=== PATIENT | female | born 1950 | race Caucasian/White ===

== ENCOUNTER 2019-05-17 16:03 | Inpatient (IN) | payer MEDICARE, OTHER ==
[2019-05-17] MEDS ORDERED: IPRATROPIUM-ALBUTEROL 3 ML NEB INHALATION STA (16:34)
[2019-05-17] MEDS ORDERED: methylPREDNISolone SOD SUCCI 125 MG/2 ML VIAL IV STA (16:34)
[2019-05-17] MEDS ORDERED: SODIUM CHLORIDE 0.9% 1,000 ML IV STA ×2 (16:34)
--- NOTE | 2019-05-17 16:35 | ED ---
SOB HPI - General Chief Complaint: Shortness of Breath Stated Complaint: SOB Time Seen by Provider: 05/17/19 16:11 Source: patient, family, RN notes reviewed, old records reviewed Mode of arrival: ambulatory Limitations: no limitations - History of Present Illness Initial Comments: This is a 68-year-old female date ER for evaluation of severe shortness of breath. Patient was sent in for evaluation of breathing. Patient is concern for kidney function. The patient only with taking a deep breath unable to and without significant decrease her pulse ox at home as well as increasing shortness of breath. Patient denying any pain. No fevers increased cough and increased congestion. Patient was very scared with any activity that she is going to lose her breath and pass out. No chest pain currently MD Complaint: shortness of breath, cough -: days(s) Severity: severe Severity scale (1-10): 9 Consistency: constant Improves With: nothing Worsens With: nothing Known History Of: COPD Context: recent URI Associated Symptoms: cough, sputum production Treatments Prior to Arrival: none - Related Data Home Medications Medication Instructions Recorded Confirmed Albuterol Inhaler [Ventolin Hfa 2 puff INHALATION RT-Q4H PRN 05/17/19 05/17/19 Inhaler] Ascorbic Acid [Vitamin C] 500 mg PO DAILY 05/17/19 05/17/19 Aspirin EC [Ecotrin Low Dose] 81 mg PO DAILY 05/17/19 05/17/19 Atorvastatin [Lipitor] 10 mg PO DAILY 05/17/19 05/17/19 Budesonide-Formot 160-4.5 Mcg 2 puff INHALATION RT-BID 05/17/19 05/17/19 [Symbicort 160-4.5 Mcg Inhaler] Cholecalciferol (Vitamin D3) 2,000 unit PO DAILY 05/17/19 05/17/19 [Vitamin D3] Citalopram Hydrobromide [CeleXA] 40 mg PO DAILY 05/17/19 05/17/19 Clopidogrel [Plavix] 75 mg PO DAILY 05/17/19 05/17/19 Cyanocobalamin (Vitamin B-12) 1,000 mcg PO DAILY 05/17/19 05/17/19 [Vitamin B-12] Fluticasone/Umeclidin/Vilanter 1 puff INHALATION RT-DAILY 05/17/19 05/17/19 [Trelegy Ellipta 100-62.5-25] Hydrochlorothiazide [Hydrodiuril] 25 mg PO DAILY 05/17/19 05/17/19 Metoprolol Succinate [Toprol XL] 50 mg PO DAILY 05/17/19 05/17/19 Omeprazole 20 mg PO DAILY 05/17/19 05/17/19 Potassium Chloride ER [K-Dur 10] 10 meq PO BID 05/17/19 05/17/19 Zolpidem [Ambien] 5 mg PO HS PRN 05/17/19 05/17/19 amLODIPine [Norvasc] 10 mg PO DAILY 05/17/19 05/17/19 predniSONE 60 mg PO DAILY PRN 05/17/19 05/17/19 traMADol HCL [Ultram] 50 mg PO Q6H PRN 05/17/19 05/17/19 Allergies Allergy/AdvReac Type Severity Reaction Status Date / Time codeine Allergy Nausea & Verified 05/17/19 18:05 Vomiting Review of Systems ROS Statement: Those systems with pertinent positive or pertinent negative responses have been documented in the HPI. ROS Other: All systems not noted in ROS Statement are negative. Past Medical History Past Medical History: COPD, Hypertension, Pneumonia, Renal Disease Additional Past Medical History / Comment(s): emphysema History of Any Multi-Drug Resistant Organisms: None Reported Past Surgical History: Adenoidectomy, Cholecystectomy, Orthopedic Surgery, Tonsillectomy Past Psychological History: No Psychological Hx Reported Smoking Status: Former smoker Past Alcohol Use History: None Reported Past Drug Use History: None Reported General Exam Limitations: no limitations General appearance: alert, anxious, cachectic Head exam: Present: atraumatic, normocephalic, normal inspection Eye exam: Present: normal appearance, PERRL, EOMI. Absent: scleral icterus, conjunctival injection, periorbital swelling ENT exam: Present: normal exam, mucous membranes moist Neck exam: Present: normal inspection. Absent: tenderness, meningismus, lymphadenopathy Respiratory exam: Present: respiratory distress, wheezes, accessory muscle use, decreased breath sounds, prolonged expiratory. Absent: rales, rhonchi, stridor Cardiovascular Exam: Present: regular rate, normal rhythm, normal heart sounds. Absent: systolic murmur, diastolic murmur, rubs, gallop, clicks GI/Abdominal exam: Present: soft, normal bowel sounds. Absent: distended, tenderness, guarding, rebound, rigid Extremities exam: Present: normal inspection, full ROM, normal capillary refill. Absent: tenderness, pedal edema, joint swelling, calf tenderness Back exam: Present: normal inspection Neurological exam: Present: alert, oriented X3, CN II-XII intact Psychiatric exam: Present: normal affect, normal mood Skin exam: Present: warm, dry, intact, normal color. Absent: rash Course Vital Signs 05/17/19 05/17/19 05/17/19 16:05 16:20 16:44 Temperature 97.5 F L Pulse Rate 95 101 H Respiratory 18 20 Rate Blood Pressure 138/76 O2 Sat by Pulse 93 L Oximetry 05/17/19 16:53 Temperature Pulse Rate 100 Respiratory Rate Blood Pressure O2 Sat by Pulse Oximetry - Reevaluation(s) Reevaluation #1: 05/17/19 18:48 Medical record is reviewed Reevaluation #2: 05/17/19 18:48 Patient showing no improvement with breathing treatment - Consultations Consultation #1: Spoke with sound will be agreeable for admission, Dr. Garcia Medical Decision Making - Medical Decision Making 58 female ER for evaluation of severe shortness of breath severe COPD and sig nificant hypoxia with ambulation over all resting oxygen was 84% and here in the ER any ambulatory activity even on O2 drops ructions the 80s. Patient will be admitted for continued breathing treatments - Lab Data Result diagrams: 05/17/19 16:25 05/17/19 16:25 Lab Results 05/17/19 05/17/19 05/17/19 Range/Units 16:25 16:25 16:25 WBC 6.4 (3.8-10.6) k/uL RBC 4.45 (3.80-5.40) m/uL Hgb 14.3 (11.4-16.0) gm/dL Hct 43.2 (34.0-46.0) % MCV 96.9 (80.0-100.0) fL MCH 32.1 (25.0-35.0) pg MCHC 33.1 (31.0-37.0) g/dL RDW 12.5 (11.5-15.5) % Plt Count 341 (150-450) k/uL Neutrophils % 55 % Lymphocytes % 30 % Monocytes % 4 % Eosinophils % 8 % Basophils % 0 % Neutrophils # 3.5 (1.3-7.7) k/uL Lymphocytes # 1.9 (1.0-4.8) k/uL Monocytes # 0.3 (0-1.0) k/uL Eosinophils # 0.5 (0-0.7) k/uL Basophils # 0.0 (0-0.2) k/uL PT (9.0-12.0) sec INR (<1.2) APTT (22.0-30.0) sec Sodium 138 (137-145) mmol/L Potassium 3.7 (3.5-5.1) mmol/L Chloride 103 (98-107) mmol/L Carbon Dioxide 27 (22-30) mmol/L Anion Gap 8 mmol/L BUN 15 (7-17) mg/dL Creatinine 0.76 (0.52-1.04) mg/dL Est GFR (CKD-EPI)AfAm >90 (>60 ml/min/1.73 sqM) Est GFR (CKD-EPI)NonAf 82 (>60 ml/min/1.73 sqM) Glucose 92 (74-99) mg/dL Calcium 9.9 (8.4-10.2) mg/dL Magnesium 1.9 (1.6-2.3) mg/dL Total Bilirubin 0.5 (0.2-1.3) mg/dL AST 22 (14-36) U/L ALT 13 (4-34) U/L Alkaline Phosphatase 88 (38-126) U/L Creatine Kinase 100 (30-135) U/L Troponin I (0.000-0.034) ng/mL NT-Pro-B Natriuret Pep 178 pg/mL Total Protein 6.7 (6.3-8.2) g/dL Albumin 4.3 (3.5-5.0) g/dL 05/17/19 05/17/19 Range/Units 16:25 16:25 WBC (3.8-10.6) k/uL RBC (3.80-5.40) m/uL Hgb (11.4-16.0) gm/dL Hct (34.0-46.0) % MCV (80.0-100.0) fL MCH (25.0-35.0) pg MCHC (31.0-37.0) g/dL RDW (11.5-15.5) % Plt Count (150-450) k/uL Neutrophils % % Lymphocytes % % Monocytes % % Eosinophils % % Basophils % % Neutrophils # (1.3-7.7) k/uL Lymphocytes # (1.0-4.8) k/uL Monocytes # (0-1.0) k/uL Eosinophils # (0-0.7) k/uL Basophils # (0-0.2) k/uL PT 9.6 (9.0-12.0) sec INR 0.9 (<1.2) APTT 21.6 L (22.0-30.0) sec Sodium (137-145) mmol/L Potassium (3.5-5.1) mmol/L Chloride (98-107) mmol/L Carbon Dioxide (22-30) mmol/L Anion Gap mmol/L BUN (7-17) mg/dL Creatinine (0.52-1.04) mg/dL Est GFR (CKD-EPI)AfAm (>60 ml/min/1.73 sqM) Est GFR (CKD-EPI)NonAf (>60 ml/min/1.73 sqM) Glucose (74-99) mg/dL Calcium (8.4-10.2) mg/dL Magnesium (1.6-2.3) mg/dL Total Bilirubin (0.2-1.3) mg/dL AST (14-36) U/L ALT (4-34) U/L Alkaline Phosphatase (38-126) U/L Creatine Kinase (30-135) U/L Troponin I <0.012 (0.000-0.034) ng/mL NT-Pro-B Natriuret Pep pg/mL Total Protein (6.3-8.2) g/dL Albumin (3.5-5.0) g/dL - EKG Data -: EKG Interpreted by Me (EKG shows sinus rhythm rate of 82, FL 178, QRS 74, QTc 467) - Radiology Data Radiology results: report reviewed (Chest x-ray is negative for acute disease), image reviewed Critical Care Time Critical Care Time: Yes Total Critical Care Time: 31 Disposition Clinical Impression: Acute exacerbation of chronic obstructive pulmonary disease, Hypoxia Disposition: ADMITTED IP TO THIS HOSP Condition: Fair Is patient prescribed a controlled substance at d/c from ED?: No Referrals: Nonstaff,Physician [Primary Care Provider] - 1-2 days
[2019-05-17 17:01] LABS: Basophils % (A) 0 %; Eosinophils # (A) 0.5 k/uL (0-0.7); Eosinophils % (A) 8 %; HCT 43.2 % (34.0-46.0); HGB 14.3 gm/dL (11.4-16.0); Lymphocytes # (A) 1.9 k/uL (1.0-4.8); Lymphocytes % (A) 30 %; MCH 32.1 pg (25.0-35.0); MCHC 33.1 g/dL (31.0-37.0); MCV 96.9 fL (80.0-100.0); Mean Platelet Volume 8.2; Monocytes # (A) 0.3 k/uL (0-1.0); Monocytes % (A) 4 %; Neutrophils # (A) 3.5 k/uL (1.3-7.7); Neutrophils % (A) 55 %; Platelet Count 341 k/uL (150-450); RBC 4.45 m/uL (3.80-5.40); RDW 12.5 % (11.5-15.5); WBC 6.4 k/uL (3.8-10.6)
[2019-05-17 17:16] LABS: ALT 13 U/L (4-34); AST 22 U/L (14-36); African American GFR (CKD) >90 (>60 ml/min/1.73 sqM); Albumin 4.3 g/dL (3.5-5.0); Alkaline Phosphatase 88 U/L (38-126); Anion Gap 8 mmol/L; Blood Urea Nitrogen 15 mg/dL (7-17); Calcium 9.9 mg/dL (8.4-10.2); Carbon Dioxide 27 mmol/L (22-30); Chloride 103 mmol/L (98-107); Creatine Kinase 100 U/L (30-135); Glucose 92 mg/dL (74-99); Magnesium 1.9 mg/dL (1.6-2.3); Non-African American GFR(CKD) 82 (>60 ml/min/1.73 sqM); Potassium 3.7 mmol/L (3.5-5.1); Sodium 138 mmol/L (137-145); Total Bilirubin 0.5 mg/dL (0.2-1.3); Total Protein 6.7 g/dL (6.3-8.2)
[2019-05-17 17:23] LABS: INR 0.9 (<1.2); Partial Thromboplastin Time 21.6 sec (22.0-30.0); Prothrombin Time 9.6 sec (9.0-12.0)
--- NOTE | 2019-05-17 17:42 | XR ---
EXAMINATION TYPE: XR chest 2V DATE OF EXAM: 05/17/2019 COMPARISON: NONE HISTORY: Short of breath TECHNIQUE: 2 views FINDINGS: Heart is normal. Lungs are clear of infiltrate. There is no pleural effusion. Bony thorax i s intact. There are chest leads. IMPRESSION: No active cardiopulmonary disease. Normal heart.
[2019-05-17] MEDS ORDERED: METOPROLOL SUCCINATE (ER) 50 MG TAB.ER.24H PO STA (19:36)
[2019-05-17] MEDS ORDERED: ALBUTEROL NEBULIZED 2.5 MG/3 ML INHALATION PRN ×2 (19:47→23:59)
[2019-05-17] MEDS: SODIUM CHLORIDE 0.9% 1,000 ML IV SCH (20:08)
[2019-05-17] MEDS: IPRATROPIUM-ALBUTEROL 3 ML NEB INHALATION SCH (20:24)
[2019-05-17] MEDS: ZOLPIDEM 5 MG TAB PO PRN (22:56)
[2019-05-17] MEDS: methylPREDNISolone SOD SUCCI 125 MG/2 ML VIAL IV SCH (22:56)
[2019-05-17] MEDS: HEPARIN SODIUM,PORCINE 5,000 UNIT/ML 1 ML VIAL SQ SCH (22:56)
[2019-05-18] MEDS: DOXYCYCLINE 100 MG CAP PO SCH ×2 (00:19→08:06)
--- NOTE | 2019-05-18 00:20 | P.HPIM ---
History of Present Illness H&P Date: 05/17/19 Chief Complaint: Shortness of breath 68-year-old female with history of COPD not on home oxygen Patient comes in with one-week history of worsening shortness of breath with p roductive greenish sputum. She reports that she was having some fevers and chills and her home oxygen monitor shows desats down to the ED percent she has positive sick contact with her daughter was very sick with cold symptoms. She admits to runny nose and sore throat and body aches. She's been trying to avoid to go to the hospital tries to self medicate using her inhalers she quit smoking 3 weeks ago. Ever today she got very sick she was started having chest pain with deep breaths and coughing more of a pleuritic chest pain for which she decided to come to the hospital as she noticed that she's not improving. Otherwise she denies any nausea vomiting abdominal pain changes in her bowel or urinary habits. This 81 chest x-ray was negative EKG showed normal sinus rhythm, her blood work was per much unremarkable Patient did not respond well to initial treatment with breathing treatments without much improvement her oxygen continued to desat on room air at rest for which patient is admitted for COPD management Review of Systems Pertinent positives as noted in HPI. All other systems were reviewed and are negative Past Medical History Past Medical History: COPD, Hypertension, Pneumonia, Renal Disease Additional Past Medical History / Comment(s): emphysema History of Any Multi-Drug Resistant Organisms: None Reported Past Surgical History: Adenoidectomy, Cholecystectomy, Orthopedic Surgery, Tonsillectomy Past Psychological History: No Psychological Hx Reported Smoking Status: Former smoker Past Alcohol Use History: None Reported Past Drug Use History: None Reported - Past Family History Family Family Medical History: No Reported History Medications and Allergies Home Medications Medication Instructions Recorded Confirmed Type Albuterol Inhaler [Ventolin Hfa 2 puff INHALATION RT-Q4H PRN 05/17/19 05/17/19 History Inhaler] Ascorbic Acid [Vitamin C] 500 mg PO DAILY 05/17/19 05/17/19 History Aspirin EC [Ecotrin Low Dose] 81 mg PO DAILY 05/17/19 05/17/19 History Atorvastatin [Lipitor] 10 mg PO DAILY 05/17/19 05/17/19 History Budesonide-Formot 160-4.5 Mcg 2 puff INHALATION RT-BID 05/17/19 05/17/19 History [Symbicort 160-4.5 Mcg Inhaler] Cholecalciferol (Vitamin D3) 2,000 unit PO DAILY 05/17/19 05/17/19 History [Vitamin D3] Citalopram Hydrobromide [CeleXA] 40 mg PO DAILY 05/17/19 05/17/19 History Clopidogrel [Plavix] 75 mg PO DAILY 05/17/19 05/17/19 History Cyanocobalamin (Vitamin B-12) 1,000 mcg PO DAILY 05/17/19 05/17/19 History [Vitamin B-12] Fluticasone/Umeclidin/Vilanter 1 puff INHALATION RT-DAILY 05/17/19 05/17/19 History [Trelegy Ellipta 100-62.5-25] Hydrochlorothiazide [Hydrodiuril] 25 mg PO DAILY 05/17/19 05/17/19 History Metoprolol Succinate [Toprol XL] 50 mg PO DAILY 05/17/19 05/17/19 History Omeprazole 20 mg PO DAILY 05/17/19 05/17/19 History Potassium Chloride ER [K-Dur 10] 10 meq PO BID 05/17/19 05/17/19 History Zolpidem [Ambien] 5 mg PO HS PRN 05/17/19 05/17/19 History amLODIPine [Norvasc] 10 mg PO DAILY 05/17/19 05/17/19 History predniSONE 60 mg PO DAILY PRN 05/17/19 05/17/19 History traMADol HCL [Ultram] 50 mg PO Q6H PRN 05/17/19 05/17/19 History Allergies Allergy/AdvReac Type Severity Reaction Status Date / Time codeine Allergy Nausea & Verified 05/17/19 18:05 Vomiting Physical Exam Vitals: Vital Signs Temp Pulse Resp BP Pulse Ox 05/17/19 19:26 98 F 80 20 139/105 97 05/17/19 16:53 100 05/17/19 16:44 101 H 05/17/19 16:20 20 05/17/19 16:05 97.5 F L 95 18 138/76 93 L Intake and Output 05/17/19 05/17/19 05/17/19 06:59 14:59 22:59 Other: Weight 47.627 kg Constitutional: Patient is in mild respiratory distress when she talks, conversant, pleasant Eyes: Anicteric sclerae, moist conjunctiva, no lid-lag Pupils equal round reactive to light ENMT: NC/AT Oropharynx clear, no erythema, exudates Neck: Supple, FROM, no masses, or JVD No carotid bruits No thyromegaly Lungs: Decreased breath sounds throughout with prolonged is expiratory phase with inspiratory and expiratory wheezing Clear to percussion Patient using accessory muscles of respiration Cardiovascular: Heart regular in rate and rhythm, No murmurs, gallops, or rubs No peripheral edema Abdominal: Soft Nontender, no guarding, rebound or rigidity Abdomen moving with respiration Normoactive bowel sounds No hepatomegaly, No splenomegaly No palpable mass No abdominal wall hernia noted Skin: Normal temperature, tone, texture, turgor No induration No subcutaneous nodules No rash, lesions No ulcers Extremities: No digital cyanosis No clubbing Pedal pulses intact and symmetrical Radial pulses intact and symmetrical No calf tenderness Psychiatric: Alert and oriented to person, place and time Appropriate affect fair judgment Neuro Muscles Strength 5/5 in all 4 extremities Sensation to light touch grossly present throughout Cranial nerves II-XII grossly intact No focal sensory deficits Lymphatics: no palpable cervical or supraclavicular , or inguinal lymph nodes Results CBC & Chem 7: 05/17/19 16:25 05/17/19 16:25 Labs: Abnormal Lab Results - Last 24 Hours (Table) 05/17/19 Range/Units 16:25 APTT 21.6 L (22.0-30.0) sec Assessment and Plan Assessment: 68-year-old female with history of COPD and hypertension Comes in with one-week history of worsening shortness of breath and productive cough of greenish sputum with home oxygen monitoring showing desats down to the 80% patient try to avoid the hospital by using inhalers at home however she started feeling worse and decided come to the ER today. Admitted for acute COPD exacerbation with anticipated length of stay more than 2 midnights Plan: Acute hypoxic respiratory failure Acute COPD exacerbation Hypertension Patient started on IV systemic steroids Breathing treatments when necessary He home inhalers Patient quit smoking 3 weeks ago Doxycycline twice a day Chest x-ray negative Check influenza PCR Symptomatic control EKG showed normal sinus rhythm Assessment oxygen requirement prior to discharge Patient is full code DVT prophylaxis heparin subcu 3 times a day Discussed with: Patient, ER, RN Anticipated length of stay more than [address]: Home A total of 60 minutes was spent on the care of this complex patient more than 50% of the time was spent in counseling and care coordination.
[2019-05-18] MEDS: methylPREDNISolone SOD SUCCI 125 MG/2 ML VIAL IV SCH ×3 (05:35→17:56)
[2019-05-18] MEDS: SODIUM CHLORIDE 0.9% 1,000 ML IV SCH ×2 (05:36→17:43)
[2019-05-18 06:36] LABS: Glucose,Whole Blood 141 mg/dL (75-99)
[2019-05-18] MEDS: IPRATROPIUM-ALBUTEROL 3 ML NEB INHALATION SCH ×4 (06:56→22:01)
[2019-05-18] MEDS ORDERED: SYMBICORT 160-4.5 MCG INHALER INHALATION SCH (08:00)
[2019-05-18] MEDS: CITALOPRAM HYDROBROMIDE 20 MG TAB PO SCH (08:05)
[2019-05-18] MEDS: METOPROLOL SUCCINATE (ER) 50 MG TAB.ER.24H PO SCH (08:05)
[2019-05-18] MEDS: PANTOPRAZOLE 40 MG TABLET PO SCH (08:05)
[2019-05-18] MEDS: ASPIRIN 81 MG PO SCH (08:05)
[2019-05-18] MEDS: amLODIPine 10 MG TAB PO SCH (08:05)
[2019-05-18] MEDS: ATORVASTATIN 10 MG TAB PO SCH (08:05)
[2019-05-18] MEDS: HEPARIN SODIUM,PORCINE 5,000 UNIT/ML 1 ML VIAL SQ SCH ×2 (08:06→17:55)
[2019-05-18] MEDS: HYDROCHLOROTHIAZIDE 25 MG TAB PO SCH (08:06)
[2019-05-18] MEDS: CLOPIDOGREL 75 MG TAB PO SCH (08:06)
[2019-05-18] MEDS ORDERED: ENOXAPARIN 40 MG/0.4 ML SYRINGE SQ SCH (09:00)
[2019-05-18] MEDS ORDERED: IPRATROPIUM-ALBUTEROL 3 ML NEB INHALATION PRN (10:26)
[2019-05-18 11:38] LABS: Glucose,Whole Blood 118 mg/dL (75-99)
--- NOTE | 2019-05-18 12:05 | XR ---
EXAMINATION TYPE: XR chest 2V DATE OF EXAM: 05/18/2019 COMPARISON: Prior chest x-ray 05/17/2019 HISTORY: COPD exacerbation TECHNIQUE: Frontal and lateral views of the chest are obtained. FINDINGS: There are prominent lung volumes ingesting COPD. There is no focal air space opacity, pleu ral effusion, or pneumothorax seen. The cardiac silhouette size is within normal limits. There is a spinal curvature present. The aorta is dense. The osseous structures are intact. IMPRESSION: No acute cardiopulmonary process.
--- NOTE | 2019-05-18 12:17 | P.PN ---
Subjective Progress Note Date: 05/18/19 the patient is seen and examined at bedside sitting up in bed, reports that she is feeling better but has conversational dyspnea and noticed pursed lip breathing. no acute events overnight Objective - Vital Signs Vital signs: Vital Signs Temp 97.6 F 05/18/19 07:45 Pulse 81 05/18/19 07:45 Resp 18 05/18/19 07:45 BP 126/71 05/18/19 07:45 Pulse Ox 94 L 05/18/19 07:45 Intake & Output 05/17/19 05/18/19 05/18/19 18:59 06:59 18:59 Intake Total 240 Balance 240 Weight 47.627 kg 47.627 kg Intake: Oral 240 Other: # Voids 2 - Exam Constitutional: noted respiratory distress, conversant, pleasant Eyes: Anicteric sclerae, moist conjunctiva, no lid-lag, PERRLA ENMT: NC/AT,Oropharynx clear, no erythema, exudates Neck:Supple, FROM, no masses, or JVD, No carotid bruits; No thyromegaly Lungs: diffuse wheezes, labored respiration with purse lipped breathing and conversational dyspnea Cardiovascular: Heart regular in rate and rhythm, No murmurs, gallops, or rubs no peripheral edema Abdominal: Soft Nontender, nom distended, no guarding, no rebound or rigidity, Normoactive bowel sounds No hepatomegaly, No splenomegaly, No palpable mass No abdominal wall hernia noted Skin: Normal temperature, tone, texture, turgor, No induration No subcutaneous nodules, No rash, lesions, No ulcers Extremities:No digital cyanosis No clubbing, Pedal pulses intact and symmetrical Radial pulses intact and symmetrical Normal gait and station, No calf tenderness Psychiatric: Alert and oriented to person, place and time, Appropriate affect Intact judgement Neuro: Muscles Strength 5/5 in all 4 extremities, Sensation to light touch grossly present throughout, Cranial nerves II-XII grossly intact. No focal sensory deficits - Labs CBC & Chem 7: 05/17/19 16:25 05/17/19 16:25 Labs: Abnormal Lab Results - Last 24 Hours (Table) 05/17/19 05/18/19 Range/Units 16:25 06:33 APTT 21.6 L (22.0-30.0) sec POC Glucose (mg/dL) 141 H (75-99) mg/dL Assessment and Plan Assessment: Acute hypoxic respiratory failure * noted respiratory distress today Initiate continuous pulse ox with plans for pulmonary consultation * We will add prn breathing treatments and check a chest x-ray today * Continue supplemental oxygen to keep sats between 90-92% * we'll plan for home O2 eval In the next 24 hours Acute COPD exacerbation * Continue current treatment with systemic steroids Solu-Medrol, Symbicort, continue antibiotics with doxycycline * follow-up repeat chest x-ray Essential hypertension * blood pressure stable controlled continue current regimen with HCTZ former smoker * Patient quit approximately 3 weeks ago * Does not want nicotine patch disposition * Patient with severe COPD exacerbation we'll discharge switched to inpatient status as she is in respiratory distress and has been a nonresponder
--- NOTE | 2019-05-18 14:37 | P.CNPUL ---
History of Present Illness Consult date: 05/18/19 Requesting physician: Patrick Dela Cruz Reason for consult: dyspnea, cough, COPD Chief complaint: Dyspnea, cough, congestion History of present illness: This is a 68-year-old white female patient who lives up [address] [place] in [place], [place], 40 miles west of [place], [place], with past medical history of COPD, not normally oxygen dependent, recently quit smoking 3 weeks ago, up until smoked for over 40 years, less than a pack a day. The medical history includes hypertension, previous episodes of pneumonia, and generalized anxiety. Patient follows with a technology integration specialist up [place], however she does not know her baseline PFT measurements. He is normally on combination of Symbicort, Ventolin, and nebulized albuterol. Patient had been sick for over a week, she came down to this area to be with her family for the holidays. The last few days she has had worsening dyspnea, cough, congestion, she is producing small amounts of green colored sputum, she did have low-grade fevers at home, and sweating. Chest x-ray showed no active cardiopulmonary disease. Normal sinus rhythm on the EKG, with no acute ischemic changes. Blood work was reviewed, CBC and CMP were unremarkable, troponin was negative 1, proBNP was 178, influenza screen was negative. Patient was started on combination of IV steroids, nebulized bronchodilators, empiric antibiotics, and admitted for further management. Review of Systems All systems: negative Constitutional: Denies chills, Denies fever Eyes: denies blurred vision, denies pain Ears, nose, mouth and throat: Denies headache, Denies sore throat Cardiovascular: Denies chest pain, Denies shortness of breath Respiratory: Reports congestion, Reports cough with sputum, Reports dyspnea, Reports wheezing, Denies cough Gastrointestinal: Denies abdominal pain, Denies diarrhea, Denies nausea, Denies vomiting Genitourinary: Denies dysuria, Denies hematuria Musculoskeletal: Denies myalgias Integumentary: Denies pruritus, Denies rash Neurological: Denies numbness, Denies weakness Psychiatric: Denies anxiety, Denies depression Endocrine: Denies fatigue, Denies weight change Past Medical History Past Medical History: COPD, Hypertension, Pneumonia, Renal Disease Additional Past Medical History / Comment(s): emphysema History of Any Multi-Drug Resistant Organisms: None Reported Past Surgical History: Adenoidectomy, Cholecystectomy, Orthopedic Surgery, Tonsillectomy Additional Past Surgical History / Comment(s): cyst removed from her hand; sliced right forearm open repaired at [facility] Past Psychological History: No Psychological Hx Reported Smoking Status: Former smoker Past Alcohol Use History: None Reported Past Drug Use History: None Reported - Past Family History Family Family Medical History: No Reported History Medications and Allergies Home Medications Medication Instructions Recorded Confirmed Type Albuterol Inhaler [Ventolin Hfa 2 puff INHALATION RT-Q4H PRN 05/17/19 05/17/19 History Inhaler] Ascorbic Acid [Vitamin C] 500 mg PO DAILY 05/17/19 05/17/19 History Aspirin EC [Ecotrin Low Dose] 81 mg PO DAILY 05/17/19 05/17/19 History Atorvastatin [Lipitor] 10 mg PO DAILY 05/17/19 05/17/19 History Budesonide-Formot 160-4.5 Mcg 2 puff INHALATION RT-BID 05/17/19 05/17/19 History [Symbicort 160-4.5 Mcg Inhaler] Cholecalciferol (Vitamin D3) 2,000 unit PO DAILY 05/17/19 05/17/19 History [Vitamin D3] Citalopram Hydrobromide [CeleXA] 40 mg PO DAILY 05/17/19 05/17/19 History Clopidogrel [Plavix] 75 mg PO DAILY 05/17/19 05/17/19 History Cyanocobalamin (Vitamin B-12) 1,000 mcg PO DAILY 05/17/19 05/17/19 History [Vitamin B-12] Fluticasone/Umeclidin/Vilanter 1 puff INHALATION RT-DAILY 05/17/19 05/17/19 History [Trelegy Ellipta 100-62.5-25] Hydrochlorothiazide [Hydrodiuril] 25 mg PO DAILY 05/17/19 05/17/19 History Metoprolol Succinate [Toprol XL] 50 mg PO DAILY 05/17/19 05/17/19 History Omeprazole 20 mg PO DAILY 05/17/19 05/17/19 History Potassium Chloride ER [K-Dur 10] 10 meq PO BID 05/17/19 05/17/19 History Zolpidem [Ambien] 5 mg PO HS PRN 05/17/19 05/17/19 History amLODIPine [Norvasc] 10 mg PO DAILY 05/17/19 05/17/19 History predniSONE 60 mg PO DAILY PRN 05/17/19 05/17/19 History traMADol HCL [Ultram] 50 mg PO Q6H PRN 05/17/19 05/17/19 History Allergies Allergy/AdvReac Type Severity Reaction Status Date / Time codeine Allergy Nausea & Verified 05/17/19 18:05 Vomiting Physical Exam Vitals: Vital Signs Temp Pulse Pulse Resp BP BP BP 05/18/19 10:50 98 05/18/19 10:36 96 05/18/19 07:45 97.6 F 81 18 126/71 05/18/19 07:07 89 05/18/19 06:57 88 05/18/19 00:55 85 05/18/19 00:42 85 05/17/19 23:49 18 05/17/19 23:21 98.4 F 89 18 147/72 05/17/19 20:43 81 05/17/19 20:24 81 05/17/19 19:26 98 F 80 20 139/105 05/17/19 16:53 100 05/17/19 16:44 101 H 05/17/19 16:20 20 05/17/19 16:05 97.5 F L 95 18 138/76 Pulse Ox 05/18/19 10:50 05/18/19 10:36 05/18/19 07:45 94 L 05/18/19 07:07 05/18/19 06:57 05/18/19 00:55 05/18/19 00:42 05/17/19 23:49 05/17/19 23:21 96 05/17/19 20:43 05/17/19 20:24 96 05/17/19 19:26 97 05/17/19 16:53 05/17/19 16:44 05/17/19 16:20 05/17/19 16:05 93 L Intake and Output 05/17/19 05/18/19 05/18/19 22:59 06:59 14:59 Intake Total 1040 Balance 1040 Intake: Intake, IV Titration 800 Amount Sodium Chloride 0.9% 1, 800 000 ml @ 100 mls/hr IV . Q10H [facility] Rx#:[id number] Oral 240 Other: # Voids 2 1 Weight 47.627 kg GENERAL EXAM: Alert, very pleasant, 68-year-old white female on room air, with a pulse ox of 94%, comfortable in no apparent distress. HEAD: Normocephalic/atraumatic. EYES: Normal reaction of pupils, equal size. Conjunctiva pink, sclera white. NOSE: Clear with pink turbinates. THROAT: No erythema or exudates. NECK: No masses, no JVD, no thyroid enlargement, no adenopathy. CHEST: No chest wall deformity. Symmetrical expansion. LUNGS: Equal air entry with diffuse wheezes. Loose congested cough, sometimes producing small amount of green phlegm CVS: Regular rate and rhythm, normal S1 and S2, no gallops, no murmurs, no rubs ABDOMEN: Soft, nontender. No hepatosplenomegaly, normal bowel sounds, no guarding or rigidity. EXTREMITIES: No clubbing, no edema, no cyanosis, 2+ pulses and upper and lower extremities. MUSCULOSKELETAL: Muscle strength and tone normal. SPINE: No scoliosis or deformity SKIN: No rashes CENTRAL NERVOUS SYSTEM: Alert and oriented -3. No focal deficits, tone is normal in all 4 extremities. PSYCHIATRIC: Alert and oriented -3. Appropriate affect. Intact judgment and insight. Results - Laboratory Findings CBC and BMP: 05/17/19 16:25 05/17/19 16:25 PT/INR, D-dimer PT 9.6 sec (9.0-12.0) 05/17/19 16:25 INR 0.9 (<1.2) 05/17/19 16:25 Abnormal lab findings: Abnormal Labs 05/17/19 05/18/19 05/18/19 16:25 06:33 11:36 APTT 21.6 L POC Glucose (mg/dL) 141 H 118 H - Diagnostic Findings Chest x-ray: report reviewed, image reviewed Assessment and Plan Plan: Assessment: #1. Acute exacerbation of chronic obstructive pulmonary disease, acute by purulent tracheobronchitis #2. Chronic obstructive pulmonary disease, severity of which is unknown at this time, patient follows with a technology integration specialist up [place] in [facility] #3. Hypertension #4. Previous episode of pneumonia #5. Ex-smoker, smoking 3 weeks ago #6. 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 Patient is quite dyspneic and bronchospastic on today's exam, Influenza screen was negative, she's been afebrile. We'll continue to follow I performed a history & physical examination of the patient and discussed their management with my nurse practitioner, Rita Potter. I reviewed the nurse practitioner's note and agree with the documented findings and plan of care. Lung sounds are positive for diffuse wheezes throughout the lung us. The findings and the impression was discussed with the patient. I attest to the documentation by the nurse practitioner. Time with Patient: Greater than 30
[2019-05-18 16:59] LABS: Glucose,Whole Blood 129 mg/dL (75-99)
[2019-05-18 20:43] LABS: Glucose,Whole Blood 142 mg/dL (75-99)
[2019-05-18] MEDS: ZOLPIDEM 5 MG TAB PO PRN (21:57)
[2019-05-18] MEDS: BUDESONIDE 1 MG/2 ML NEBU INHALATION SCH (22:01)
[2019-05-18] MEDS: FORMOTEROL FUMARATE 20 MCG/2 ML NEBU INHALATION SCH (22:13)
[2019-05-19] MEDS: methylPREDNISolone SOD SUCCI 125 MG/2 ML VIAL IV SCH ×4 (00:03→17:11)
[2019-05-19] MEDS: DOXYCYCLINE 100 MG CAP PO SCH ×3 (00:03→20:45)
[2019-05-19] MEDS: HEPARIN SODIUM,PORCINE 5,000 UNIT/ML 1 ML VIAL SQ SCH ×3 (00:04→15:59)
[2019-05-19] MEDS: SODIUM CHLORIDE 0.9% 1,000 ML IV SCH ×3 (06:07→20:45)
[2019-05-19 07:13] LABS: Glucose,Whole Blood 132 mg/dL (75-99)
[2019-05-19] MEDS: IPRATROPIUM-ALBUTEROL 3 ML NEB INHALATION SCH ×4 (07:25→19:40)
[2019-05-19] MEDS: FORMOTEROL FUMARATE 20 MCG/2 ML NEBU INHALATION SCH ×2 (07:25→19:40)
[2019-05-19] MEDS: BUDESONIDE 1 MG/2 ML NEBU INHALATION SCH ×2 (07:25→19:47)
[2019-05-19] MEDS: PANTOPRAZOLE 40 MG TABLET PO SCH (07:48)
[2019-05-19] MEDS: ATORVASTATIN 10 MG TAB PO SCH (07:48)
[2019-05-19] MEDS: HYDROCHLOROTHIAZIDE 25 MG TAB PO SCH (07:48)
[2019-05-19] MEDS: CLOPIDOGREL 75 MG TAB PO SCH (07:49)
[2019-05-19] MEDS: CITALOPRAM HYDROBROMIDE 20 MG TAB PO SCH (07:49)
[2019-05-19] MEDS: amLODIPine 10 MG TAB PO SCH (07:49)
[2019-05-19] MEDS: ASPIRIN 81 MG PO SCH (07:49)
[2019-05-19] MEDS: METOPROLOL SUCCINATE (ER) 50 MG TAB.ER.24H PO SCH (07:49)
--- NOTE | 2019-05-19 10:27 | P.PN ---
Subjective Progress Note Date: 05/19/19 This is a 68-year-old white female patient who lives up [address] in [place], [place], 4 0 miles west of [place], [place], with past medical history of COPD, not normally oxygen dependent, recently quit smoking 3 weeks ago, up until smoked for over 40 years, less than a pack a day. The medical history includes hypertension, previous episodes of pneumonia, and generalized anxiety. Patient follows with a client care specialist up [place], however she does not know her baseline PFT measurements. He is normally on combination of Symbicort, Ventolin, and nebulized albuterol. Patient had been sick for over a week, she came down to this area to be with her family for the holidays. The last few days she has had worsening dyspnea, cough, congestion, she is producing small amounts of green colored sputum, she did have low-grade fevers at home, and sweating. Chest x-ray showed no active cardiopulmonary disease. Normal sinus rhythm on the EKG, with no acute ischemic changes. Blood work was reviewed, CBC and CMP were unremarkable, troponin was negative 1, proBNP was 178, influenza screen was negative. Patient was started on combination of IV steroids, nebulized bronchodilators, empiric antibiotics, and admitted for further management. Today's evaluation of 05/19/2019 the patient is feeling better she is less short of breath compared to yesterday. She is known to have advanced COPD. She has limited on Symbicort and albuterol nebulized treatments. She has no oxygen at home. She came in with acute COPD exacerbation. She quit smoking 3 weeks ago. She has required on steroids in the past for COPD exacerbation. She is feeling better. No evidence of any pneumonia. Continue bronchodilators. Continue steroids for now. She is currently on oxygen at 2 L per minute nasal cannula. No swelling lower extremities. No angina. No pleurisy. No hemoptysis. Objective - Vital Signs Vital signs: Vital Signs Temp 98.0 F 05/19/19 05:00 Pulse 94 05/19/19 07:46 Resp 20 05/19/19 05:00 BP 115/63 05/19/19 05:00 Pulse Ox 91 L 05/19/19 05:00 Intake & Output 05/18/19 05/19/19 05/19/19 18:59 06:59 18:59 Intake Total 1040 550 Balance 1040 550 Intake: Intake, IV Titration 800 Amount Sodium Chloride 0.9% 1, 800 000 ml @ 100 mls/hr IV . Q10H [facility] Rx#:[id number] Oral 240 550 Other: # Voids 1 1 - Exam GENERAL EXAM: Alert, very pleasant, 68-year-old white female on room air, with a pulse ox of 94%, comfortable in no apparent distress. HEAD: Normocephalic/atraumatic. EYES: Normal reaction of pupils, equal size. Conjunctiva pink, sclera white. NOSE: Clear with pink turbinates. THROAT: No erythema or exudates. NECK: No masses, no JVD, no thyroid enlargement, no adenopathy. CHEST: No chest wall deformity. Symmetrical expansion. LUNGS: Equal air entry with diffuse wheezes. Loose congested cough, sometimes producing small amount of green phlegm CVS: Regular rate and rhythm, normal S1 and S2, no gallops, no murmurs, no rubs ABDOMEN: Soft, nontender. No hepatosplenomegaly, normal bowel sounds, no guarding or rigidity. EXTREMITIES: No clubbing, no edema, no cyanosis, 2+ pulses and upper and lower extremities. MUSCULOSKELETAL: Muscle strength and tone normal. SPINE: No scoliosis or deformity SKIN: No rashes CENTRAL NERVOUS SYSTEM: Alert and oriented -3. No focal deficits, tone is normal in all 4 extremities. PSYCHIATRIC: Alert and oriented -3. Appropriate affect. Inta - Labs CBC & Chem 7: 05/17/19 16:25 05/17/19 16:25 Labs: Abnormal Lab Results - Last 24 Hours (Table) 05/18/19 05/18/19 05/18/19 Range/Units 11:36 16:58 20:42 POC Glucose (mg/dL) 118 H 129 H 142 H (75-99) mg/dL 05/19/19 Range/Units 07:12 POC Glucose (mg/dL) 132 H (75-99) mg/dL Assessment and Plan Plan: #1. Acute exacerbation of chronic obstructive pulmonary disease, acute by purulent tracheobronchitis and the patient has a severe COPD at baseline was up in [place] by a local product engineering manager. #2. Chronic obstructive pulmonary disease, severity of which is unknown at this time, patient [place] with [place] client care specialist [place] area #3. Hypertension #4. Previous episode of pneumonia #5. Ex-smoker, smoking 3 weeks ago #6. 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 She is feeling less short of breath compared to yesterday. Continue bronchodilators and steroids for another 24 hours. Continue to follow. Smoking cessation counseling was done. On no oxygen at home. He has a home nebulizer. Her product engineering manager is Dr. Borrego. The patient was recently placed Trelegy by her product engineering manager. I think it's an excellent choice for her. She is to go back on it along with a prednisone burst taper at time of discharge.
--- NOTE | 2019-05-19 10:58 | P.PN ---
Subjective Progress Note Date: 05/19/19 patient seen and examined at bedside, she reports to feeling better today but not at her baseline she reports her breathing is improved and she is not as wheezy. She continues on 2 L via nasal cannula. She continues to have paroxysms of cough, chest x-ray yesterday did not show any pneumonia. No acute events overnight Objective - Vital Signs Vital signs: Vital Signs Temp 98.0 F 05/19/19 05:00 Pulse 94 05/19/19 07:46 Resp 20 05/19/19 05:00 BP 115/63 05/19/19 05:00 Pulse Ox 91 L 05/19/19 05:00 Intake & Output 05/18/19 05/19/19 05/19/19 18:59 06:59 18:59 Intake Total 1040 550 Balance 1040 550 Intake: Intake, IV Titration 800 Amount Sodium Chloride 0.9% 1, 800 000 ml @ 100 mls/hr IV . Q10H [facility] Rx#:[id number] Oral 240 550 Other: # Voids 1 1 - Exam Constitutional: no acute distress, conversant, pleasant Eyes: Anicteric sclerae, moist conjunctiva, no lid-lag, PERRLA ENMT: NC/AT,Oropharynx clear, no erythema, exudates Neck:Supple, FROM, no masses, or JVD, No carotid bruits; No thyromegaly Lungs: improved aeration, noted wheezes , unlabored on 2 L via nasal cannula Cardiovascular: Heart regular in rate and rhythm, No murmurs, gallops, or rubs no peripheral edema Abdominal: Soft Nontender, nom distended, no guarding, no rebound or rigidity, Normoactive bowel sounds No hepatomegaly, No splenomegaly, No palpable mass No abdominal wall hernia noted Skin: Normal temperature, tone, texture, turgor, No induration No subcutaneous nodules, No rash, lesions, No ulcers Extremities:No digital cyanosis No clubbing, Pedal pulses intact and symmetrical Radial pulses intact and symmetrical Normal gait and station, No calf tenderness Psychiatric: Alert and oriented to person, place and time, Appropriate affect Intact judgement Neuro: Muscles Strength 5/5 in all 4 extremities, Sensation to light touch grossly present throughout, Cranial nerves II-XII grossly intact. No focal sensory deficits - Labs CBC & Chem 7: 05/17/19 16:25 05/17/19 16:25 Labs: Abnormal Lab Results - Last 24 Hours (Table) 05/18/19 05/18/19 05/18/19 Range/Units 11:36 16:58 20:42 POC Glucose (mg/dL) 118 H 129 H 142 H (75-99) mg/dL 05/19/19 Range/Units 07:12 POC Glucose (mg/dL) 132 H (75-99) mg/dL Assessment and Plan Assessment: Acute hypoxic respiratory failure * breathing improved today * continue current treatment plan * Continue supplemental oxygen to keep sats between 90-92% * we'll plan for home O2 eval In the next 24 hours prior to discharge Acute COPD exacerbation * Continue current treatment with systemic steroids Solu-Medrol, Symbicort, continue antibiotics with doxycycline * continue scheduled albuterol Atrovent DuoNeb breathing treatments and prn * Appreciated pulmonary recommendations, recently placed on TRelegy by her superintendent maintenance airports Dr. Borrego acute tracheobronchitis * Treatment as above Essential hypertension * blood pressure stable controlled continue current regimen with HCTZ former smoker * Patient quit approximately 3 weeks ago * Does not want nicotine patch disposition * patient improved and continues to wheeze anticipated discharge tomorrowwith the prednisone taper
[2019-05-19 11:39] LABS: Glucose,Whole Blood 230 mg/dL (75-99)
[2019-05-19 16:36] LABS: Glucose,Whole Blood 137 mg/dL (75-99)
[2019-05-19 21:14] LABS: Glucose,Whole Blood 234 mg/dL (75-99)
[2019-05-20] MEDS: HEPARIN SODIUM,PORCINE 5,000 UNIT/ML 1 ML VIAL SQ SCH ×3 (00:26→15:23)
[2019-05-20] MEDS: methylPREDNISolone SOD SUCCI 125 MG/2 ML VIAL IV SCH ×4 (00:26→16:37)
[2019-05-20 07:20] LABS: Glucose,Whole Blood 116 mg/dL (75-99)
[2019-05-20] MEDS: DOXYCYCLINE 100 MG CAP PO SCH ×2 (07:53→20:41)
[2019-05-20] MEDS: ASPIRIN 81 MG PO SCH (07:54)
[2019-05-20] MEDS: ATORVASTATIN 10 MG TAB PO SCH (07:54)
[2019-05-20] MEDS: PANTOPRAZOLE 40 MG TABLET PO SCH (07:54)
[2019-05-20] MEDS: CLOPIDOGREL 75 MG TAB PO SCH (07:54)
[2019-05-20] MEDS: amLODIPine 10 MG TAB PO SCH (07:54)
[2019-05-20] MEDS: METOPROLOL SUCCINATE (ER) 50 MG TAB.ER.24H PO SCH (07:54)
[2019-05-20] MEDS: CITALOPRAM HYDROBROMIDE 20 MG TAB PO SCH (07:54)
[2019-05-20] MEDS: HYDROCHLOROTHIAZIDE 25 MG TAB PO SCH (07:54)
[2019-05-20] MEDS: SODIUM CHLORIDE 0.9% 1,000 ML IV SCH ×2 (08:06→16:37)
[2019-05-20] MEDS: IPRATROPIUM-ALBUTEROL 3 ML NEB INHALATION SCH ×4 (08:09→20:45)
[2019-05-20] MEDS: BUDESONIDE 1 MG/2 ML NEBU INHALATION SCH ×2 (08:10→20:45)
[2019-05-20] MEDS: FORMOTEROL FUMARATE 20 MCG/2 ML NEBU INHALATION SCH ×2 (08:10→20:45)
[2019-05-20 12:22] LABS: Glucose,Whole Blood 129 mg/dL (75-99)
--- NOTE | 2019-05-20 13:50 | P.PN ---
Subjective Progress Note Date: 05/20/19 Principal diagnosis: Acute exacerbation of COPD with purulent tracheobronchitis This is a 68-year-old white female patient who lives up [place] in [place], [place], 40 [place] of [place], [place], with past medical history of COPD, not normally oxygen dependent, recently quit smoking 3 weeks ago, up until smoked for over 40 years, less than a pack a day. The medical history includes hypertension, previous episodes of pneumonia, and generalized anxiety. Patient follows with a pulmona ry specialist up [place], however she does not know her baseline PFT measurements. He is normally on combination of Symbicort, Ventolin, and nebulized albuterol. Patient had been sick for over a week, she came down to this area to be with her family for the holidays. The last few days she has had worsening dyspnea, cough, congestion, she is producing small amounts of green colored sputum, she did have low-grade fevers at home, and sweating. Chest x-ray showed no active cardiopulmonary disease. Normal sinus rhythm on the EKG, with no acute ischemic changes. Blood work was reviewed, CBC and CMP were unremarkable, troponin was negative 1, proBNP was 178, influenza screen was negative. Patient was started on combination of IV steroids, nebulized bronchodilators, empiric antibiotics, and admitted for further management. Today's evaluation of 05/19/2019 the patient is feeling better she is less short of breath compared to yesterday. She is known to have advanced COPD. She has limited on Symbicort and albuterol nebulized treatments. She has no oxygen at home. She came in with acute COPD exacerbation. She quit smoking 3 weeks ago. She has required on steroids in the past for COPD exacerbation. She is feeling better. No evidence of any pneumonia. Continue bronchodilators. Continue steroids for now. She is currently on oxygen at 2 L per minute nasal cannula. No swelling lower extremities. No angina. No pleurisy. No hemoptysis. On 05/20/2019 patient seen in follow-up on medical surgical floor. She is improving, but still dyspneic, but less bronchospastic, less congested, breathing easier, she is on room air, her pulse ox is 92%, afebrile, hemodynamically stable. No complaints of chest pain, patient remains on combination of empiric antibiotics, nebulized bronchodilators, IV steroids, improving, still has a very congested cough, dissipate on other 24 hours of inpatient treatment, will reevaluate tomorrow Objective - Vital Signs Vital signs: Vital Signs Temp 98.0 F 05/20/19 04:25 Pulse 94 05/20/19 11:45 Resp 20 05/20/19 04:25 BP 116/56 05/20/19 04:25 Pulse Ox 97 05/20/19 10:48 Intake & Output 05/19/19 05/20/19 05/20/19 18:59 06:59 18:59 Intake Total 1580 Balance 1580 Intake: IV 800 Sodium Chloride 0.9% 1, 800 000 ml @ 100 mls/hr IV . Q10H [facility] Rx#:[id number] Oral 780 Other: Voiding Method Bedside Commode # Voids 2 1 2 # Bowel Movements 1 - Exam GENERAL EXAM: Alert, very pleasant, 68-year-old white female on room air, with a pulse ox of 94%, comfortable in no apparent distress. HEAD: Normocephalic/atraumatic. EYES: Normal reaction of pupils, equal size. Conjunctiva pink, sclera white. NOSE: Clear with pink turbinates. THROAT: No erythema or exudates. NECK: No masses, no JVD, no thyroid enlargement, no adenopathy. CHEST: No chest wall deformity. Symmetrical expansion. LUNGS: Equal air entry with diffuse wheezes. Loose congested cough, sometimes producing small amount of green phlegm CVS: Regular rate and rhythm, normal S1 and S2, no gallops, no murmurs, no rubs ABDOMEN: Soft, nontender. No hepatosplenomegaly, normal bowel sounds, no guarding or rigidity. EXTREMITIES: No clubbing, no edema, no cyanosis, 2+ pulses and upper and lower extremities. MUSCULOSKELETAL: Muscle strength and tone normal. SPINE: No scoliosis or deformity SKIN: No rashes CENTRAL NERVOUS SYSTEM: Alert and oriented -3. No focal deficits, tone is nor mal in all 4 extremities. PSYCHIATRIC: Alert and oriented -3. Appropriate affect. Intact judgment. - Labs CBC & Chem 7: 05/17/19 16:25 05/17/19 16:25 Labs: Abnormal Lab Results - Last 24 Hours (Table) 05/19/19 05/19/19 05/20/19 Range/Units 16:34 21:13 07:19 POC Glucose (mg/dL) 137 H 234 H 116 H (75-99) mg/dL 05/20/19 Range/Units 12:20 POC Glucose (mg/dL) 129 H (75-99) mg/dL Assessment and Plan Plan: Assessment: #1. Acute exacerbation of chronic obstructive pulmonary disease, acute by purulent tracheobronchitis #2. Chronic obstructive pulmonary disease, severity of which is unknown at this time, patient follows with a resource conservation specialist up [place] in [facility] #3. Hypertension #4. Previous episode of pneumonia #5. Ex-smoker, smoking 3 weeks ago #6. 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 Will reevaluate in another 24 hours I performed a history & physical examination of the patient and discussed their management with my nurse practitioner, Rita Potter. I reviewed the nurse practitioner's note and agree with the documented findings and plan of care. Lung sounds are positive for diffuse wheezes throughout the lung us. The findings and the impression was discussed with the patient. I attest to the documentation by the nurse practitioner. Time with Patient: Less than 30
--- NOTE | 2019-05-20 14:53 | P.PN ---
Subjective Progress Note Date: 05/20/19 patient seen and examined at bedside reports that she had a really bad night last night having multiple paroxysms of cough keeping her up. she reports wheezing and waking up feeling dyspneic throughout the night. No other acute events Objective - Vital Signs Vital signs: Vital Signs Temp 98.0 F 05/20/19 04:25 Pulse 90 05/20/19 08:13 Resp 20 05/20/19 04:25 BP 116/56 05/20/19 04:25 Pulse Ox 99 05/20/19 04:25 Intake & Output 05/19/19 05/20/19 05/20/19 18:59 06:59 18:59 Intake Total 1580 Balance 1580 Intake: IV 800 Sodium Chloride 0.9% 1, 800 000 ml @ 100 mls/hr IV . Q10H RADHA Rx#:[id number] Oral 780 Other: Voiding Method Bedside Commode # Voids 2 1 # Bowel Movements 1 - Exam Constitutional: no acute distress, conversant, pleasant Eyes: Anicteric sclerae, moist conjunctiva, no lid-lag, PERRLA ENMT: NC/AT,Oropharynx clear, no erythema, exudates Neck:Supple, FROM, no masses, or JVD, No carotid bruits; No thyromegaly Lungs: improved aeration, noted wheezes , unlabored on 2 L via nasal cannula Cardiovascular: Heart regular in rate and rhythm, No murmurs, gallops, or rubs no peripheral edema Abdominal: Soft Nontender, nom distended, no guarding, no rebound or rigidity, Normoactive bowel sounds No hepatomegaly, No splenomegaly, No palpable mass No abdominal wall hernia noted Skin: Normal temperature, tone, texture, turgor, No induration No subcutaneous nodules, No rash, lesions, No ulcers Extremities:No digital cyanosis No clubbing, Pedal pulses intact and symmetrical Radial pulses intact and symmetrical Normal gait and station, No calf tenderness Psychiatric: Alert and oriented to person, place and time, Appropriate affect Intact judgement Neuro: Muscles Strength 5/5 in all 4 extremities, Sensation to light touch grossly present throughout, Cranial nerves II-XII grossly intact. No focal sensory deficits - Labs CBC & Chem 7: 05/17/19 16:25 05/17/19 16:25 Labs: Abnormal Lab Results - Last 24 Hours (Table) 1205/19/19 05/19/19 Range/Units 11:37 16:34 21:13 POC Glucose (mg/dL) 230 H 137 H 234 H (75-99) mg/dL 05/20/19 Range/Units 07:19 POC Glucose (mg/dL) 116 H (75-99) mg/dL Assessment and Plan Assessment: Acute hypoxic respiratory failure * breathing improved today * continue current treatment plan * Continue supplemental oxygen to keep sats between 90-92% * we'll plan for home O2 eval In the next 24 hours prior to discharge Acute COPD exacerbation * Continue current treatment with systemic steroids Solu-Medrol, Symbicort, continue antibiotics with doxycycline * continue scheduled albuterol Atrovent DuoNeb breathing treatments and prn * Appreciated pulmonary recommendations, recently placed on TRelegy by her graphic designer Dr. Borrego acute tracheobronchitis * Treatment as above Essential hypertension * blood pressure stable controlled continue current regimen with HCTZ former smoker * Patient quit approximately 3 weeks ago * Does not want nicotine patch disposition * patient improved and continues to wheeze anticipated discharge tomorrow with the prednisone taper
[2019-05-20 16:57] LABS: Glucose,Whole Blood 117 mg/dL (75-99)
[2019-05-20 20:31] LABS: Glucose,Whole Blood 185 mg/dL (75-99)
[2019-05-21] MEDS: methylPREDNISolone SOD SUCCI 125 MG/2 ML VIAL IV SCH ×3 (00:08→11:07)
[2019-05-21] MEDS: HEPARIN SODIUM,PORCINE 5,000 UNIT/ML 1 ML VIAL SQ SCH ×2 (00:08→07:38)
[2019-05-21] MEDS: SODIUM CHLORIDE 0.9% 1,000 ML IV SCH ×2 (03:20→13:35)
[2019-05-21 05:23] VITALS: BP 113/57; RESP 20; TEMP 98.1
[2019-05-21 07:21] LABS: Glucose,Whole Blood 125 mg/dL (75-99)
[2019-05-21] MEDS: FORMOTEROL FUMARATE 20 MCG/2 ML NEBU INHALATION SCH (07:22)
[2019-05-21] MEDS: IPRATROPIUM-ALBUTEROL 3 ML NEB INHALATION SCH ×2 (07:22→11:12)
[2019-05-21] MEDS: BUDESONIDE 1 MG/2 ML NEBU INHALATION SCH (07:23)
[2019-05-21] MEDS: PANTOPRAZOLE 40 MG TABLET PO SCH (07:38)
[2019-05-21] MEDS: METOPROLOL SUCCINATE (ER) 50 MG TAB.ER.24H PO SCH (07:38)
[2019-05-21] MEDS: CITALOPRAM HYDROBROMIDE 20 MG TAB PO SCH (07:38)
[2019-05-21] MEDS: CLOPIDOGREL 75 MG TAB PO SCH (07:38)
[2019-05-21] MEDS: ASPIRIN 81 MG PO SCH (07:38)
[2019-05-21] MEDS: amLODIPine 10 MG TAB PO SCH (07:38)
[2019-05-21] MEDS: HYDROCHLOROTHIAZIDE 25 MG TAB PO SCH (07:38)
[2019-05-21] MEDS: DOXYCYCLINE 100 MG CAP PO SCH (07:39)
[2019-05-21] MEDS: ATORVASTATIN 10 MG TAB PO SCH (07:39)
[2019-05-21 11:32] VITALS: PULSE 78
[2019-05-21 11:32] LABS: Glucose,Whole Blood 124 mg/dL (75-99)
--- NOTE | 2019-05-25 15:45 | P.DS ---
Providers Date of admission: 05/18/19 10:30 Expected date of discharge: 05/21/19 Attending physician: Whitney Mcgrath MD Consults: 05/18/19 10:38 Consult Physician Routine Consulting Provider: Aria Tavares Consult Reason/Comments: copd exacerbation Do you want consulting provider notified?: Yes Primary care physician: Physician Nonstaff Hospital Course: Discharge diagnoses Acute COPD exacerbation Acute tracheobronchitis Essential hypertension Former smoker History of pneumonia Hospital course The patient is a 68-year-old [place] [facility] that presented with worsening cough and dyspnea and congestion and was admitted for acute COPD exacerbation she was started on empiric IV antibiotics with doxycycline, systemic steroids with Solu-Medrol, albuterol Atrovent bronchodilator DuoNeb breathing treatments. Workup with chest x-ray was negative for any acute cardiopulmonary process, NT proBNP was 178, influenza screen was negative, her CMP and CBC were normal. sputum culture was obtained that showed respiratory grover, Gram stain showed many gram-positive cocci and yeast and few gram-negative cocci. with treatment the patient became less bronchospastic, it was noted that the patient previously been treated for an episode of pneumonia and also recently quit smoking 2 weeks ago. 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 The patient was discharged home in stable condition after qualifying oxygen. This discharge process took approximately 35 minutes Focused exam Respiratory : adequate aeration equal air entry with mildly scattered wheezes, congestive cough unlabored on 2 L nasal cannula Patient Condition at Discharge: Good Plan - Discharge Summary New Discharge Prescriptions: New predniSONE 0 mg PO DIRECTED #14 tab Doxycycline [Vibramycin] 100 mg PO BID #7 cap Continue Potassium Chloride ER [K-Dur 10] 10 meq PO BID Cyanocobalamin (Vitamin B-12) [Vitamin B-12] 1,000 mcg PO DAILY Cholecalciferol (Vitamin D3) [Vitamin D3] 2,000 unit PO DAILY Budesonide-Formot 160-4.5 Mcg [Symbicort 160-4.5 Mcg Inhaler] 2 puff INHALATION RT-BID Ascorbic Acid [Vitamin C] 500 mg PO DAILY amLODIPine [Norvasc] 10 mg PO DAILY Zolpidem [Ambien] 5 mg PO HS PRN PRN Reason: Insomnia Omeprazole 20 mg PO DAILY Hydrochlorothiazide [Hydrodiuril] 25 mg PO DAILY Clopidogrel [Plavix] 75 mg PO DAILY Citalopram Hydrobromide [CeleXA] 40 mg PO DAILY traMADol HCL [Ultram] 50 mg PO Q6H PRN PRN Reason: Pain predniSONE 60 mg PO DAILY PRN PRN Reason: FLARE UP Metoprolol Succinate [Toprol XL] 50 mg PO DAILY Atorvastatin [Lipitor] 10 mg PO DAILY Aspirin EC [Ecotrin Low Dose] 81 mg PO DAILY Albuterol Inhaler [Ventolin Hfa Inhaler] 2 puff INHALATION RT-Q4H PRN PRN Reason: Shortness Of Breath Fluticasone/Umeclidin/Vilanter [Trelegy Ellipta 100-62.5-25] 1 puff INHALATION RT-DAILY Discharge Medication List Albuterol Inhaler [Ventolin Hfa Inhaler] 2 puff INHALATION RT-Q4H PRN 05/17/19 [History] Ascorbic Acid [Vitamin C] 500 mg PO DAILY 05/17/19 [History] Aspirin EC [Ecotrin Low Dose] 81 mg PO DAILY 05/17/19 [History] Atorvastatin [Lipitor] 10 mg PO DAILY 05/17/19 [History] Budesonide-Formot 160-4.5 Mcg [Symbicort 160-4.5 Mcg Inhaler] 2 puff INHALATION RT-BID 05/17/19 [History] Cholecalciferol (Vitamin D3) [Vitamin D3] 2,000 unit PO DAILY 05/17/19 [History] Citalopram Hydrobromide [CeleXA] 40 mg PO DAILY 05/17/19 [History] Clopidogrel [Plavix] 75 mg PO DAILY 05/17/19 [History] Cyanocobalamin (Vitamin B-12) [Vitamin B-12] 1,000 mcg PO DAILY 05/17/19 [History] Fluticasone/Umeclidin/Vilanter [Trelegy Ellipta 100-62.5-25] 1 puff INHALATION RT-DAILY 05/17/19 [History] Hydrochlorothiazide [Hydrodiuril] 25 mg PO DAILY 05/17/19 [History] Metoprolol Succinate [Toprol XL] 50 mg PO DAILY 05/17/19 [History] Omeprazole 20 mg PO DAILY 05/17/19 [History] Potassium Chloride ER [K-Dur 10] 10 meq PO BID 05/17/19 [History] Zolpidem [Ambien] 5 mg PO HS PRN 05/17/19 [History] amLODIPine [Norvasc] 10 mg PO DAILY 05/17/19 [History] predniSONE 60 mg PO DAILY PRN 05/17/19 [History] traMADol HCL [Ultram] 50 mg PO Q6H PRN 05/17/19 [History] Doxycycline [Vibramycin] 100 mg PO BID #7 cap 05/21/19 [Rx] predniSONE 0 mg PO DIRECTED #14 tab 05/21/19 [Rx] Follow up Appointment(s)/Referral(s): [facility] [NON-STAFF] - As Needed Nonstaff,Physician [Primary Care Provider] - 1-2 days Patient Instructions/Handouts: COPD (Chronic Obstructive Pulmonary Disease) (DC) Discharge Disposition: HOME SELF-CARE
== END 2019-05-21 13:46 | disposition home or self-care (01) | DRG 190 ==
LOC: EC 16:03 → 1SOBS 19:47 → OBSVTOIN 05-18 10:30 → 6NMEDSUR 05-18 16:05
PROVIDERS: ADMIT Internal Medicine; ATTEND Internal Medicine
DX: J43.9 Emphysema, unspecified (principal); J96.01 Acute respiratory failure with hypoxia; J20.9 Acute bronchitis, unspecified; I10 Essential (primary) hypertension; F41.1 Generalized anxiety disorder; Z79.899 Other long term (current) drug therapy; Z79.51 Long term (current) use of inhaled steroids; Z79.02 Long term (current) use of antithrombotics/antiplatelets; Z79.82 Long term (current) use of aspirin; Z87.891 Personal history of nicotine dependence; Z87.01 Personal history of pneumonia (recurrent); Z88.5 Allergy status to narcotic agent; Z90.49 Acquired absence of other specified parts of digestive tract; Z90.89 Acquired absence of other organs; Z98.890 Other specified postprocedural states
CPT/HCPCS: 36415; 71046; 80053; 82550; 83735; 83880; 84484; 85025; 85610; 85730; 87070; 87205; 87502; 93005; 94640; 96361; 96374; 99291